=== PATIENT | female | born 2000 | race Caucasian/White ===

== ENCOUNTER 2023-09-11 11:12 | Emergency (ER) | payer BC, SELFPAY ==
[2023-09-11 11:14] VITALS: BP 119/85; PULSE 95; RESP 16; TEMP 36.2; O2SAT 100; BMI 25.6
--- NOTE | 2023-09-11 11:28 | EDS_ITS ---
HPI History of Present Illness Chief Complaint: Bite Detail of Chief Complaint: Cat bite to left small finger Informant: patient Narrative Narrative: Patient presents to the emergency department with complaint of injury to the left small finger. Patient was trying to give medicine to a barn cat yesterday when the cat apparently went crazy and bit her on the left small finger. Cat is immunized and is known. Cat may have parvovirus. Patient was seen in urgent care yesterday and started on Augmentin and was told to come to the ER if increasing pain or redness or swelling. Patient states she is having hard time moving her finger. PFSH PFSH Medical History no medical history Home Medications drospirenone (contraceptive) 4 mg (28) tablet (Slynd) 1 tab PO DAILY 09/11/23 [History Last Taken Unknown] Allergy/AdvReac Type Severity Reaction Status Date / Time No Known Allergies Allergy Verified 09/11/23 11:15 Social History Smoking Status: Former smoker ROS ROS ED Review of Systems ROS Unobtainable: other Constitutional Constitutional ED: Reports lethargy; Denies chills, fever(s), sweats or weight loss Eyes Eyes: Denies blurry vision, change in vision or diplopia ENT ENT ED: Denies rhinorrhea or sore throat Cardiovascular Cardiovascular: Denies chest pain, orthopnea or racing heartbeat Respiratory/Chest Respiratory/Chest: Denies cough, dyspnea, dyspnea on exertion, orthopnea or sputum Gastrointestinal Gastrointestinal: Denies abdominal pain, diarrhea, nausea or vomiting Genitourinary Genitourinary ED: Denies dysuria, hematuria or urinary frequency Musculoskeletal Musculoskeletal: Reports other Details: Left small finger puncture wounds and redness and swelling ; Denies arthralgias, back pain, myalgias or neck pain Integumentary Denies abscess, Abrasions or rash Neurologic Neurologic: Denies headache(s) or weakness Psychiatric Psychiatric: Denies anxiety, depression or suicidal thoughts Endocrine Endocrinology: Denies polydipsia, polyphagia or polyuria Hematologic/Lymphatic Hematologic/Lymphatic: Denies easy bleeding, easy bruising or lymphadenopathy Allergic/Immunologic Allergic/Immunologic ED: Denies mouth swelling, tongue swelling or urticaria EXAM Physical Exam Const Vital Signs: 09/11/23 11:14 Temperature 97.1 F L Temperature Source Temporal Pulse Rate 95 Respiratory Rate 16 Blood Pressure 119/85 H Blood Pressure Mean 96 Pulse Ox 100 Oxygen Delivery Method Room Air Positive well nourished and well developed General Appearance ED: well developed and NAD HEENT Reports TM's clear and moist mucous membranes normocephalic and atraumatic; Negative for trauma or tenderness Tympanic Membrane ED: Yes TM's clear Eyes PERRL and EOMs intact bilaterally General Eye ED: Negative for pale conjunctiva or scleral icterus Neck no lymphadenopathy, supple and no JVD General: Negative for tenderness Chest Wall inspection of chest normal and palpation of chest normal Chest: Negative for tenderness Resp normal respiratory effort and clear to auscultation bilaterally Effort and Inspection: Negative for respiratory distress or pain with movement Auscultation: Negative for rhonchi, wheezes or diminished lung sounds Cardio regular rate, regular rhythm, S1 normal heart sound, S2 normal heart sound and no murmurs Peripheral Pulses: pulses 2+ throughout GI normal to inspection, nondistended, normoactive bowel sounds, soft to palpation, non-tender, non-distended and no masses Back/Spine no CVA tenderness and no thoracic nor lumbar tenderness Extremity Extremity Narrative: Left hand-patient has a small puncture wound to the volar aspect of the proximal phalanx and when compressed purulent debris is expressed. There is surrounding erythema and cellulitic changes down to the mid palm. Patient able to completely extend the digit but pain with flexion. Patient also has some small superficial puncture wounds to the dorsum of the proximal phalanx. Neurovascular intact. General Extremety ED: Negative for edema General Extremity: Negative for edema Neuro oriented x3, CN's II-XII intact bilaterally, no sensory deficits noted and gait normal Sensorium / Orientation: awake, alert, oriented to person, oriented to place and oriented to time Motor Exam: strength 5/5 throughout and strength abnormal Psych mental status grossly normal Skin no rashes or lesions noted and no wounds MDM MDM MDM Narrative Medical decision making narrative: Patient presents with cat bite worsening despite being on Augmentin since yesterday. IV line established. She had an x-ray of the left small finger which showed no foreign bodies or fractures on my interpretation. She was given Unasyn 3 g IV. Discussed case with our orthopedic surgeon who recommended transfer to another facility where they would have a hand surgeon available to see the patient. Concern is for a flexor tenosynovitis related to the cat bite. Patient does not have a preference which hospital to go to. We discussed case with [facility] and I spoke with the hand surgeon there Dr. Alejo who accepted transfer of patient. He has the we transfer patient to the emergency department there and spoke with Dr. Thibodeaux who accepted transfer of patient. We will leave the IV in place and will just tape it and allow the Hep-Lock to remain in place as patient does not want to be poked again. She will be evaluated by hand surgery and may require admission for IV antibiotics. Lab Data Attestation: I reviewed the patient's lab results. Discharge Plan Triage Chief Complaint: Bite ED Provider: Kory Teixeira Dx/Rx/DC Orders Clinical Impression: Cat bite, Flexor tenosynovitis of finger Prescriptions: No Action Slynd 4 mg (28) tablet 1 tab PO DAILY Primary Care Provider: Care Physician,No Primary Referrals: Care Physician,No Primary [Primary Care Provider] - Disposition Disposition: DC/Tx to Another Type of HCF
--- NOTE | 2023-09-11 11:38 | RAD_ITS ---
STUDY: X-RAY - LEFT HAND, ATTENTION FIFTH FINGER REASON FOR EXAM: Female, 23 years old. Injury. Evaluate for foreign body. TECHNIQUE: 3 view(s) of the finger were obtained. COMPARISON: None. FINDINGS: Normal metacarpal head. Normal metacarpophalangeal joint. Normal proximal phalanx. Normal middle phalanx. Normal distal phalanx. Normal proximal interphalangeal joint. Normal distal interphalangeal joint. Diffuse soft tissue swelling. RAD/Finger(s) Min 2 Views IMPRESSION: Diffuse soft tissue swelling. No radiographic foreign body identified. Electronically Signed: Richie Oswald MD at 11:57 EST ,
[2023-09-11 11:53] LABS: Absolute Lymphocyte Count 2.23 X10^3/uL (0.83-4.51); Basophil# 0.05 X10^3/uL; Basophil% 0.4 % (0-1); Eosinophil# 0.15 X10^3/uL; Eosinophils% 1.2 % (0-5); Hematocrit 39.7 % (37-47); Hemoglobin 13.1 g/dL (12.0-15.0); Lymphocyte # 2.23 X10^3/ul (0.83-4.51); Lymphocyte % 18.2 % (19-41); Mean Corpuscular Volume 84.8 fL (81-99); Mean Platelet Vol. 10.5 fl (6.2-12.0); Monocyte# 0.78 X10^3/uL; Monocyte% 6.4 % (0-10); NRBC Flagged by Analyzer 0 % (0-5); Neutrophil # 8.98 X10^3/uL (2.7-7.7); Neutrophil % 73.5 % (47-70); Platelet Count 249 K/mm3 (150-450); RBC Distribution Width CV 12.3 % (11.6-14.6); RBC Distribution Width SD 37.3 fl (35.1-43.9); Red Blood Count 4.68 M/mm3 (4.2-5.4); White Blood Count 12.2 K/mm3 (4.4-11.0)
[2023-09-11] MEDS: Ampicillin/Sulbactam 3 GM in 0.9% Normal Saline (100mL MB+) 100 ML IV (12:01)
[2023-09-11 12:06] LABS: Anion Gap 5 (5-15); BUN 18 mg/dL (7-18); Calcium,Total 9.1 mg/dL (8.5-10.1); Chloride 112 mmol/L (98-107); Creatinine, Serum 0.69 mg/dL (0.55-1.02); EST Glomerular Filtration Rate 112 mL/min (>60); Est Glom Filt Rate - Afr Amer 136 mL/min (>60); Estimated Creatinine Clearance 112.02 ml/min; Glucose 105 mg/dL (74-106); Sodium Level 141 mmol/L (136-145)
[2023-09-11 12:52] VITALS: BP 112/78; PULSE 86; RESP 16; TEMP 36.4; O2SAT 100
== END 2023-09-11 12:56 | disposition other institution (70) ==
PROVIDERS: Emergency Provider Emergency Medicine; Visit Provider Emergency Medicine
DX: S61.255A Open bite of left ring finger without damage to nail, initial encounter (principal); Z87.891 Personal history of nicotine dependence; W55.01XA Bitten by cat, initial encounter
CPT/HCPCS: 73140; 80048; 85025; 96365; 99285; J7050; A4216; J0295